=== PATIENT | male | born 1985 | race Caucasian/White ===

== ENCOUNTER 2020-09-27 13:19 | Emergency (ER) | payer OTHER ==
[~2020-09-27] VITALS: Ht 185.4 cm; Wt 92.8 kg
--- NOTE | 2020-09-27 13:49 | NUR ---
PT IN CT.
[2020-09-27] MEDS ORDERED: LIDOCAINE 4% TOPICAL SOLUTION 50 ML TP ONE (14:00)
--- NOTE | 2020-09-27 14:07 | NUR ---
LIDOCAINE 4% REQUESTED FROM PHARMACY.
[2020-09-27 14:30] VITALS: BP 148/109
== END 2020-09-27 14:54 | disposition home or self-care (01) ==
LOC: ED 14:15
DX: G44.219 Episodic tension-type headache, not intractable (principal); G44.039 Episodic paroxysmal hemicrania, not intractable; R00.0 Tachycardia, unspecified
CPT/HCPCS: 70450; 99284